=== PATIENT | male | born 1990 | race African-American/Black ===

== ENCOUNTER 2018-11-22 01:11 | Emergency (ER) | payer OTHER ==
[~2018-11-22] VITALS: Ht 167.6 cm; Wt 117.9 kg
[2018-11-22 01:14] VITALS: BP 160/91
[2018-11-22] MEDS: KETOROLAC TROMETHAMINE INJ 60 MG/2 ML VIAL IM STA (02:04)
[2018-11-22] MEDS: METHOCARBAMOL (500MG) 500 MG TABLET PO STA (02:04)
== END 2018-11-22 04:08 | disposition home or self-care (01) ==
LOC: ER 01:14
DX: M54.6 Pain in thoracic spine (principal); Z60.2 Problems related to living alone; W01.0XXA Fall on same level from slipping, tripping and stumbling without subsequent striking against object, initial encounter; Y93.89 Activity, other specified; Y92.89 Other specified places as the place of occurrence of the external cause; Y99.8 Other external cause status
CPT/HCPCS: 71100; 96372; 99283; J1885